=== PATIENT | male | born 1940 | race Caucasian/White ===

== ENCOUNTER 2019-07-26 17:16 | Emergency (ER) | payer OTHER ==
[~2019-07-26] VITALS: Ht 172.7 cm; Wt 100.2 kg
[2019-07-26] MEDS ORDERED: GLUCOPHAGE1000 MG PO (18:35)
[2019-07-26] MEDS ORDERED: B COMPLEX WITH1 EACH PO (18:35)
[2019-07-26] MEDS ORDERED: ATORVASTATIN CA80 MG PO (18:36)
[2019-07-26] MEDS ORDERED: BAYER CHEWABLE81 MG PO (18:36)
[2019-07-26] MEDS ORDERED: VITAMIN B-121000 MCG PO (18:37)
[2019-07-26] MEDS ORDERED: METOPROLOL TART50 MG PO (18:39)
[2019-07-26] MEDS ORDERED: ACTOS30 MG PO (18:39)
[2019-07-26] MEDS ORDERED: PROAIR HFA8.5 GM INH (18:40)
[2019-07-26] MEDS ORDERED: SYMBICORT 16010.2 GM INH (18:40)
[2019-07-26] MEDS ORDERED: ZESTRIL40 MG PO (18:41)
[2019-07-26] MEDS ORDERED: HYDROCHLOROTHIA25 MG PO (18:41)
[2019-07-26] MEDS ORDERED: ELIQUIS5 M1 PO (18:41)
[2019-07-26] MEDS ORDERED: GLIPIZIDE10 MG PO (18:42)
[2019-07-26] MEDS ORDERED: VOLTAREN100 GM TOP (18:44)
[2019-07-26] MEDS ORDERED: FUROSEMIDE20 MG PO (19:00)
[2019-07-26] MEDS ORDERED: ZITHROMAX250 MG PO (19:00)
[2019-07-26] MEDS ORDERED: POTASSIUM CHLO20 ME2 PO (19:00)
--- NOTE | 2019-07-27 13:29 | EKG ---
[facility] [address] [facility] [place], [place] [address] Signed Atrial fibrillation Inferior infarct , age undetermined Abnormal ECG No previous ECGs available Confirmed by CHRISTIN CAUSEY DO ([id number]) on 07/27/2019 1:29:26 PM Electronically Signed By: CHRISTIN CAUSEY DO 07/27/19 1329 PATIENT NAME: RIVER JAIME Electrocardiogram DATE OF : 40 PHYSICIAN: CHRISTIN CAUSEY DO REPORT #: [id number] REPORT IS CONFIDENTIAL AND NOT TO BE RELEASED WITHOUT AUTHORIZATION
== END 2019-07-26 19:53 | disposition home or self-care (01) ==
LOC: ED 17:16
DX: I11.0 Hypertensive heart disease with heart failure (principal); I50.9 Heart failure, unspecified; J44.9 Chronic obstructive pulmonary disease, unspecified; I48.91 Unspecified atrial fibrillation; E78.5 Hyperlipidemia, unspecified; E11.9 Type 2 diabetes mellitus without complications; F17.200 Nicotine dependence, unspecified, uncomplicated; Z79.899 Other long term (current) drug therapy
CPT/HCPCS: 71045; 80053; 83880; 84484; 85025; 93005; 93010; 96374; 99285-25; J1940

== ENCOUNTER 2019-08-29 10:59 | Emergency (ER) | payer OTHER ==
[~2019-08-29] VITALS: Ht 172.7 cm; Wt 100.2 kg
[~2019-08-29 10:59] MED LIST: ACTOS30 MG PO; ATORVASTATIN CA80 MG PO; B COMPLEX WITH1 EACH PO; BAYER CHEWABLE81 MG PO; ELIQUIS5 M1 PO; FUROSEMIDE20 MG PO; GLIPIZIDE10 MG PO; GLUCOPHAGE1000 MG PO; HYDROCHLOROTHIA25 MG PO; METOPROLOL TART50 MG PO; POTASSIUM CHLO20 ME2 PO; PROAIR HFA8.5 GM INH; SYMBICORT 16010.2 GM INH; VITAMIN B-121000 MCG PO; VOLTAREN100 GM TOP; ZESTRIL40 MG PO; ZITHROMAX250 MG PO
== END 2019-08-29 12:47 | disposition home or self-care (01) ==
LOC: ED 10:59
DX: J44.9 Chronic obstructive pulmonary disease, unspecified (principal); E11.9 Type 2 diabetes mellitus without complications; I10 Essential (primary) hypertension; I48.91 Unspecified atrial fibrillation; E78.5 Hyperlipidemia, unspecified; F17.200 Nicotine dependence, unspecified, uncomplicated; Z79.899 Other long term (current) drug therapy
CPT/HCPCS: 71046; 80053; 85025; 85610; 85730; 99285-25

== ENCOUNTER 2020-02-25 16:23 | Emergency (ER) | payer OTHER ==
[~2020-02-25] VITALS: Ht 172.7 cm; Wt 97.5 kg
[2020-02-25] MEDS ORDERED: FUROSEMIDE40 MG PO (16:35)
[2020-02-25] MEDS ORDERED: PREDNISONE20 MG PO (17:21)
== END 2020-02-25 18:05 | disposition home or self-care (01) ==
LOC: ED 16:23
DX: J44.1 Chronic obstructive pulmonary disease with (acute) exacerbation (principal); E11.9 Type 2 diabetes mellitus without complications; I10 Essential (primary) hypertension; I48.91 Unspecified atrial fibrillation; E78.5 Hyperlipidemia, unspecified; I25.10 Atherosclerotic heart disease of native coronary artery without angina pectoris; F17.200 Nicotine dependence, unspecified, uncomplicated; Z79.899 Other long term (current) drug therapy; Z79.84 Long term (current) use of oral hypoglycemic drugs; Z79.82 Long term (current) use of aspirin
CPT/HCPCS: 94640; 99284; J7512